=== PATIENT | female | born 1975 | race Hispanic/Latino ===

== ENCOUNTER 2018-06-13 10:37 | Day surgery (SDC) | payer OTHER ==
[~2018-06-13] VITALS: Ht 165.1 cm; Wt 96.7 kg
[2018-06-13] VITALS (11 sets, daily range): BP systolic 102–124; BP diastolic 46–88
[2018-06-13 11:04] LABS: BASOPHILS % (AUTO) 1.1 % (0.0-5.0); EOSINOPHILS % (AUTO) 0.1 % (0.0-8.0); HEMATOCRIT 25.5 % (36-48); LYMPHOCYTES % (AUTO) 15.2 % (21.0-51.0); MEAN CORPUSCULAR HEMOGLOBIN 18.1 pg (27.0-33.0); MEAN CORPUSCULAR HGB CONC 27.9 g/dL (32.0-36.0); MEAN CORPUSCULAR VOLUME 64.8 fL (79-99); MONOCYTES % (AUTO) 4.4 % (3.0-13.0); NEUTROPHILS % (AUTO) 79.2 % (40.0-77.0); NUCLEATED RED BLOOD CELLS 0.1 % (0.0-0.19); PLATELET COUNT (AUTO) 296 K/uL (130-400); RED BLOOD CELL COUNT(AUTO) 3.93 MIL/uL (4.00-5.50); RED CELL DISTRIBUTION WIDTH 18.7 % (11.0-15.5); WHITE BLOOD COUNT (AUTO) 11.8 K/uL (4.8-10.8)
[2018-06-13 11:15] LABS: CREATININE 0.7 mg/dL (0.5-1.5); POTASSIUM 4.6 mmol/L (3.5-5.1)
[2018-06-13] MEDS ORDERED: SODIUM CHLORIDE 0.9% 1000ML 1,000 ML IV ONE (11:47)
[2018-06-13] MEDS ORDERED: PRED10TA3 PO (11:58)
[2018-06-13] MEDS ORDERED: ACET-66 PO (11:58)
[2018-06-13] MEDS ORDERED: NAPR500T6 PO (11:58)
[2018-06-13] MEDS ORDERED: PROPOFOL 1000 MG/100 ML 100 ML IV ONE (13:15)
[2018-06-13] MEDS ORDERED: ONDANSETRON HCL 4 MG/2 ML VIAL ONE (13:46)
== END 2018-06-13 14:10 | disposition home or self-care (01) ==
LOC: ENDO 10:37 → DAH 10:37 → ENDO 14:10
PROVIDERS: ATTEND Surgery
DX: K21.9 Gastro-esophageal reflux disease without esophagitis (principal); Z98.84 Bariatric surgery status; Z98.890 Other specified postprocedural states; Z79.899 Other long term (current) drug therapy; Z88.0 Allergy status to penicillin; Z68.34 Body mass index [BMI] 34.0-34.9, adult; E66.01 Morbid (severe) obesity due to excess calories
CPT/HCPCS: 36415; 43235; 80048; 85025; A4606; J2405; J2704; J7030

== ENCOUNTER 2018-06-23 07:00 | Day surgery (SDC) | payer OTHER ==
[2018-06-20 16:20] VITALS: BP 124/54
[~2018-06-23] VITALS: Ht 162.6 cm; Wt 96.9 kg
[2018-06-23] VITALS (13 sets, daily range): BP systolic 104–134; BP diastolic 46–85
[~2018-06-23 07:00] MED LIST: ACET-66 PO; NAPR500T6 PO; PRED10TA3 PO; SODIUM TETRADECYL SULFATE 30 MG/ML VIAL IV ONE
[2018-06-23] MEDS ORDERED: SODIUM CHLORIDE 0.9% 1000ML 1,000 ML IV ONE (07:16)
[2018-06-23] MEDS ORDERED: PHEN37.591 PO (07:51)
[2018-06-23] MEDS ORDERED: PROPOFOL 10 MG/ML 20ML VIAL IV ONE ×3 (08:34→08:41)
[2018-06-23] MEDS ORDERED: MEPERIDINE-PF 50 MG/ML SYG ONE (09:01)
== END 2018-06-23 09:50 | disposition home or self-care (01) ==
LOC: ENDO 07:00 → DAH 07:00 → ENDO 09:50
PROVIDERS: ATTEND Surgery
DX: K21.9 Gastro-esophageal reflux disease without esophagitis (principal); Z98.84 Bariatric surgery status; Z79.899 Other long term (current) drug therapy; Z98.890 Other specified postprocedural states; Z82.49 Family history of ischemic heart disease and other diseases of the circulatory system; Z83.3 Family history of diabetes mellitus; Z88.0 Allergy status to penicillin; Z88.8 Allergy status to other drugs, medicaments and biological substances; Z68.35 Body mass index [BMI] 35.0-35.9, adult; E66.9 Obesity, unspecified
CPT/HCPCS: 43236; 76705; A4606; J2175; J2704 ×2; J3490; J7030

== ENCOUNTER 2018-07-18 10:25 | Day surgery (SDC) | payer OTHER ==
[~2018-07-18] VITALS: Ht 162.6 cm; Wt 93.5 kg
[~2018-07-18 10:25] MED LIST changes: +PHEN37.591 PO; +SODIUM CHLORIDE 0.9% 1000ML 1,000 ML IV ONE; -SODIUM TETRADECYL SULFATE 30 MG/ML VIAL IV ONE
[2018-07-18 11:22] VITALS: BP 127/76
[2018-07-18] MEDS ORDERED: SODIUM TETRADECYL SULFATE 30 MG/ML VIAL IV SCH (11:30)
[2018-07-18 11:35] LABS: BASOPHILS % (AUTO) 0.7 % (0.0-5.0); HEMATOCRIT 29.9 % (36-48); LYMPHOCYTES % (AUTO) 30.7 % (21.0-51.0); MEAN CORPUSCULAR HEMOGLOBIN 20.7 pg (27.0-33.0); MONOCYTES % (AUTO) 7.6 % (3.0-13.0); PLATELET COUNT (AUTO) 311 K/uL (130-400); RED BLOOD CELL COUNT(AUTO) 4.33 MIL/uL (4.00-5.50); RED CELL DISTRIBUTION WIDTH 24.1 % (11.0-15.5); WHITE BLOOD COUNT (AUTO) 8.3 K/uL (4.8-10.8)
[2018-07-18] MEDS ORDERED: PREDNISONE PO (11:35)
[2018-07-18 11:42] LABS: CREATININE 0.8 mg/dL (0.5-1.5); POTASSIUM 4.3 mmol/L (3.5-5.1)
[2018-07-18] MEDS ORDERED: PROPOFOL 10 MG/ML 20ML VIAL IV ONE ×2 (11:49)
[2018-07-18 12:00] VITALS: BP 129/88
[2018-07-18 12:05] VITALS: BP 131/71
[2018-07-18 12:10] VITALS: BP 142/75
== END 2018-07-18 12:39 | disposition home or self-care (01) ==
LOC: DAH 10:25 → ENDO 10:25
PROVIDERS: ATTEND Surgery
DX: K21.9 Gastro-esophageal reflux disease without esophagitis (principal); Z98.84 Bariatric surgery status; Z98.890 Other specified postprocedural states; Z79.899 Other long term (current) drug therapy; Z83.3 Family history of diabetes mellitus; Z82.49 Family history of ischemic heart disease and other diseases of the circulatory system; E66.01 Morbid (severe) obesity due to excess calories
CPT/HCPCS: 36415; 43236; 80048; 85025; A4606; J2704 ×2; J3490; J7030

== ENCOUNTER → 2018-10-03 | Outpatient (CLI) | payer OTHER ==
[~2018-10-03] MED LIST changes: -ACET-66 PO; -PRED10TA3 PO; +PREDNISONE PO; -SODIUM CHLORIDE 0.9% 1000ML 1,000 ML IV ONE
[2018-10-03 13:05] LABS: BASOPHILS % (AUTO) 0.7 % (0.0-5.0); EOSINOPHILS % (AUTO) 0.9 % (0.0-8.0); HEMATOCRIT 28.8 % (36-48); LYMPHOCYTES % (AUTO) 18.9 % (21.0-51.0); MEAN CORPUSCULAR HEMOGLOBIN 19.5 pg (27.0-33.0); MEAN CORPUSCULAR HGB CONC 28.9 g/dL (32.0-36.0); MEAN CORPUSCULAR VOLUME 67.4 fL (79-99); MONOCYTES % (AUTO) 9.6 % (3.0-13.0); NEUTROPHILS % (AUTO) 69.9 % (40.0-77.0); PLATELET COUNT (AUTO) 402 K/uL (130-400); RED BLOOD CELL COUNT(AUTO) 4.27 MIL/uL (4.00-5.50); RED CELL DISTRIBUTION WIDTH 19.4 % (11.0-15.5); WHITE BLOOD COUNT (AUTO) 7.5 K/uL (4.8-10.8)
[2018-10-03 13:29] LABS: ALBUMIN 3.2 g/dL (3.5-5.0); BILIRUBIN,TOTAL 0.3 mg/dL (0.2-1.0); CREATININE 0.8 mg/dL (0.5-1.5); CRP QUANTITATIVE 12.7 mg/L (0.00-9.0); POTASSIUM 3.9 mmol/L (3.5-5.1); TOTAL PROTEIN, SERUM 7.4 g/dL (6.0-8.3)
[2018-10-03 14:27] LABS: ERYTHROCYTE SEDIMENTATION RATE 55 MM/HR (0-20)
[2018-10-04 08:15] LABS: HEPATITIS Bs ANTIGEN SCREEN P Negative (Negative)
== END | disposition home or self-care (01) ==
LOC: LAB 12:12
PROVIDERS: ATTEND Internal Medicine
DX: M06.4 Inflammatory polyarthropathy (principal)
CPT/HCPCS: 36415; 73130; 73630; 80053; 85025; 85651; 86140; 86431; 86480; 86704; 87340

== ENCOUNTER 2018-10-27 07:00 | Day surgery (SDC) | payer OTHER ==
[2018-10-27] VITALS (8 sets, daily range): BP systolic 112–138; BP diastolic 46–79
[~2018-10-27] VITALS: Ht 154.9 cm; Wt 88.9 kg
[~2018-10-27 07:00] MED LIST changes: -GABA-529 PO; -LEFL10TA PO; -PANT40TA25 PO; +SODIUM CHLORIDE 0.9% 1000ML 1,000 ML IV ONE
[2018-10-27 07:54] LABS: BASOPHILS % (AUTO) 0.8 % (0.0-5.0); EOSINOPHILS % (AUTO) 0.5 % (0.0-8.0); HEMATOCRIT 31.3 % (36-48); LYMPHOCYTES % (AUTO) 20.1 % (21.0-51.0); MEAN CORPUSCULAR HGB CONC 30.2 g/dL (32.0-36.0); MEAN CORPUSCULAR VOLUME 73.1 fL (79-99); MONOCYTES % (AUTO) 7.8 % (3.0-13.0); NEUTROPHILS % (AUTO) 70.8 % (40.0-77.0); PLATELET COUNT (AUTO) 225 K/uL (130-400); RED BLOOD CELL COUNT(AUTO) 4.28 MIL/uL (4.00-5.50); RED CELL DISTRIBUTION WIDTH 26.1 % (11.0-15.5)
[2018-10-27] MEDS ORDERED: GABA-529 PO (08:03)
[2018-10-27] MEDS ORDERED: LEFL10TA PO (08:03)
[2018-10-27] MEDS ORDERED: PANT40TA25 PO (08:03)
[2018-10-27 08:12] LABS: CREATININE 0.8 mg/dL (0.5-1.5); POTASSIUM 4.3 mmol/L (3.5-5.1)
[2018-10-27] MEDS ORDERED: SODIUM TETRADECYL SULFATE 30 MG/ML VIAL IV SCH (08:15)
[2018-10-27] MEDS ORDERED: PROPOFOL 10 MG/ML 20ML VIAL IV ONE (08:37)
[2018-10-27] MEDS ORDERED: FENTANYL CITRATE PF 50 MCG/1 ML 2ML VIAL ONE (08:37)
[2018-10-27] MEDS ORDERED: LIDOCAINE HCL-MPF 2% 5ML VIAL ONE (08:37)
[2018-10-27] MEDS ORDERED: ONDANSETRON HCL 4 MG/2 ML VIAL ONE (08:47)
== END 2018-10-27 09:30 | disposition home or self-care (01) ==
LOC: ENDO 07:00 → DAH 07:00 → ENDO 09:30
PROVIDERS: ATTEND Surgery
DX: K21.9 Gastro-esophageal reflux disease without esophagitis (principal); Z98.84 Bariatric surgery status; Z79.899 Other long term (current) drug therapy; Z98.890 Other specified postprocedural states; Z82.49 Family history of ischemic heart disease and other diseases of the circulatory system; Z83.3 Family history of diabetes mellitus; Z88.0 Allergy status to penicillin; D64.9 Anemia, unspecified
CPT/HCPCS: 36415; 43236; 80048; 84703; 85025; A4606; J2405; J2704; J3010; J3490 ×2; J7030

== ENCOUNTER → 2018-10-27 | Outpatient (CLI) | payer OTHER ==
[~2018-10-27] MED LIST changes: +GABA-529 PO; +LEFL10TA PO; +PANT40TA25 PO
[2018-10-27 12:40] LABS: ALBUMIN 3.3 g/dL (3.5-5.0); BILIRUBIN,DIRECT 0.1 mg/dL (0.0-0.3); BILIRUBIN,TOTAL 0.5 mg/dL (0.2-1.0); TOTAL PROTEIN, SERUM 7.1 g/dL (6.0-8.3)
== END | disposition home or self-care (01) ==
LOC: LAB 11:44
PROVIDERS: ATTEND Internal Medicine
DX: Z79.899 Other long term (current) drug therapy (principal)
CPT/HCPCS: 36415; 80076

== ENCOUNTER → 2018-12-16 | Outpatient (CLI) | payer OTHER ==
[~2018-12-16] MED LIST changes: +GABA-529 PO; +LEFL10TA PO; +PANT40TA25 PO; -SODIUM CHLORIDE 0.9% 1000ML 1,000 ML IV ONE
[2018-12-16 12:23] LABS: BASOPHILS % (AUTO) 0.7 % (0.0-5.0); EOSINOPHILS % (AUTO) 0.6 % (0.0-8.0); HEMATOCRIT 39.3 % (36-48); LYMPHOCYTES % (AUTO) 8.8 % (21.0-51.0); MEAN CORPUSCULAR HEMOGLOBIN 27.1 pg (27.0-33.0); MEAN CORPUSCULAR HGB CONC 31.8 g/dL (32.0-36.0); MEAN CORPUSCULAR VOLUME 85.3 fL (79-99); MONOCYTES % (AUTO) 7.1 % (3.0-13.0); NEUTROPHILS % (AUTO) 82.8 % (40.0-77.0); NUCLEATED RED BLOOD CELLS 0.1 % (0.0-0.19); PLATELET COUNT (AUTO) 212 K/uL (130-400); RED BLOOD CELL COUNT(AUTO) 4.61 MIL/uL (4.00-5.50); RED CELL DISTRIBUTION WIDTH 21.4 % (11.0-15.5); WHITE BLOOD COUNT (AUTO) 8.6 K/uL (4.8-10.8)
[2018-12-16 13:09] LABS: ALBUMIN 3.4 g/dL (3.5-5.0); BILIRUBIN,TOTAL 0.5 mg/dL (0.2-1.0); CREATININE 0.7 mg/dL (0.5-1.5); CRP QUANTITATIVE 9.8 mg/L (0.00-9.0); POTASSIUM 4.4 mmol/L (3.5-5.1); TOTAL PROTEIN, SERUM 7.3 g/dL (6.0-8.3)
[2018-12-16 13:33] LABS: ERYTHROCYTE SEDIMENTATION RATE 35 MM/HR (0-20)
== END | disposition home or self-care (01) ==
LOC: LAB 11:46
PROVIDERS: ATTEND Internal Medicine
DX: Z79.899 Other long term (current) drug therapy (principal)
CPT/HCPCS: 36415; 80053; 85025; 85651; 86140

== ENCOUNTER → 2019-03-11 | Outpatient (CLI) | payer OTHER ==
[2019-03-11 16:59] LABS: BASOPHILS % (AUTO) 1.1 % (0.0-5.0); EOSINOPHILS % (AUTO) 0.5 % (0.0-8.0); HEMATOCRIT 38.5 % (36-48); LYMPHOCYTES % (AUTO) 12.9 % (21.0-51.0); MEAN CORPUSCULAR HEMOGLOBIN 29.9 pg (27.0-33.0); MEAN CORPUSCULAR HGB CONC 32.4 g/dL (32.0-36.0); MEAN CORPUSCULAR VOLUME 92.3 fL (79-99); MONOCYTES % (AUTO) 5.2 % (3.0-13.0); NEUTROPHILS % (AUTO) 80.3 % (40.0-77.0); PLATELET COUNT (AUTO) 242 K/uL (130-400); RED BLOOD CELL COUNT(AUTO) 4.17 MIL/uL (4.00-5.50); RED CELL DISTRIBUTION WIDTH 14.9 % (11.0-15.5); WHITE BLOOD COUNT (AUTO) 8.6 K/uL (4.8-10.8)
[2019-03-11 17:10] LABS: ALBUMIN 3.6 g/dL (3.5-5.0); BILIRUBIN,TOTAL 0.3 mg/dL (0.2-1.0); CREATININE 0.8 mg/dL (0.5-1.5); CRP QUANTITATIVE 15.5 mg/L (0.00-9.0); POTASSIUM 4.2 mmol/L (3.5-5.1); TOTAL PROTEIN, SERUM 7.7 g/dL (6.0-8.3)
[2019-03-11 18:02] LABS: ERYTHROCYTE SEDIMENTATION RATE 43 MM/HR (0-20)
== END | disposition home or self-care (01) ==
LOC: LAB 16:28
PROVIDERS: ATTEND Family Medicine
DX: M06.9 Rheumatoid arthritis, unspecified (principal)
CPT/HCPCS: 36415; 80053; 85025; 85651; 86140